=== PATIENT | male | born 1995 | race Two or more races ===

== ENCOUNTER 2019-10-07 18:56 | Emergency (ER) | payer SELFPAY ==
[~2019-10-07] VITALS: Ht 170.2 cm; Wt 56.7 kg
[~2019-10-07 18:56] MED LIST: LEVO750T31 PO
[2019-10-07] MEDS ORDERED: IV NORMAL SALINE 1000ML BAG 1,000 ML IV SCH (19:29)
[2019-10-07] MEDS ORDERED: ACETAMINOPHEN 500 MG TABLET PO ONE (19:30)
[2019-10-07] MEDS ORDERED: IBUPROFEN 200 MG TABLET. PO ONE (19:30)
[2019-10-07 19:54] LABS: BASO % 0 % (0-3); EOS % 0 % (0-3); HEMATOCRIT 44.6 % (39.0-53.0); HEMOGLOBIN 15.2 g/dL (13.0-17.5); LYMPH # 0.6 x10^3/uL (1.0-4.8); LYMPH % 6 % (24-48); MEAN CORPUSCULAR HEMOGLOBIN 29 pg (25-35); MEAN CORPUSCULAR HGB CONC 34 g/dL (31-37); MEAN CORPUSCULAR VOLUME 86 fL (79-100); MONO # 0.7 x10^3/uL (0.0-1.1); MONO % 7 % (0-9); NEUT # 8.5 x10^3/uL (1.8-7.7); NEUT % 87 % (31-73); PLATELET COUNT 149 x10^3/uL (140-400); RED CELL DISTRIBUTION WIDTH 12.7 % (11.5-14.5); WHITE BLOOD COUNT 9.8 x10^3/uL (4.0-11.0)
[2019-10-07 19:57] LABS: INFLUENZA A PATIENT NEGATIVE (NEGATIVE); INFLUENZA B PATIENT NEGATIVE (NEGATIVE)
[2019-10-07 20:06] LABS: CALCIUM 8.8 mg/dL (8.5-10.1); CREATININE 0.8 mg/dL (0.7-1.3); POTASSIUM 3.5 mmol/L (3.5-5.1)
[2019-10-07 20:11] LABS: ALBUMIN 4.2 g/dL (3.4-5.0); TOTAL BILIRUBIN 0.9 mg/dL (0.2-1.0); TOTAL PROTEIN 8.3 g/dL (6.4-8.2)
[2019-10-07 20:21] LABS: % BANDS 15 % (0-9); % LYMPHS 7 % (24-48); % MONOS 5 % (0-10); % SEGS 73 % (35-66); PLT ESTIMATE ADEQUATE (ADEQUATE)
--- NOTE | 2019-10-07 20:22 | PHYS DOC ---
Past Medical History Past Medical History: No Pertinent History Past Surgical History: No Surgical History Alcohol Use: Occasionally Drug Use: None Adult General Chief Complaint Chief Complaint: FLU SYMPTOM HPI HPI is a 23-year-old male who presents with complaint of fever, productive cough, body aches and chills for the last 4 days. Patient states symptoms of progressively gotten worse since onset. He rates the body aches as moderate. He states that his cough is been productive of green colored sputum. He denies any chest pain or shortness breath. He does admit to some nausea and has had some vomiting as well as. He states that he is getting sore in his ribs from all the coughing.[] Review of Systems Review of Systems Constitutional: Denies fever or chills [] Eyes: Denies change in visual acuity, redness, or eye pain [] HENT: Denies nasal congestion or sore throat [] Respiratory: Denies cough or shortness of breath [] Cardiovascular: No additional information not addressed in HPI [] GI: Denies abdominal pain, nausea, vomiting, bloody stools or diarrhea [] : Denies dysuria or hematuria [] Musculoskeletal: Denies back pain or joint pain [] Integument: Denies rash or skin lesions [] Neurologic: Denies headache, focal weakness or sensory changes [] Endocrine: Denies polyuria or polydipsia [] All other systems were reviewed and found to be within normal limits, except as documented in this note. Current Medications Current Medications Current Medications Medications (Trade) Dose Ordered Sig/Ephraim Start Time Stop Time Status Last Admin Dose Admin Acetaminophen (Tylenol) 1,000 mg 1X ONCE 10/07/19 19:30 10/07/19 19:33 DC 10/07/19 20:17 1,000 MG Ceftriaxone Sodium (Rocephin) 1 gm 1X ONCE 10/07/19 20:30 10/07/19 20:31 DC 10/07/19 20:39 1 GM Ibuprofen (Motrin) 600 mg 1X ONCE 10/07/19 19:30 10/07/19 19:33 DC 10/07/19 20:17 600 MG Sodium Chloride 1,000 ml @ 1,000 mls/hr Q1H 10/07/19 19:29 10/07/19 20:28 DC 10/07/19 20:18 1,000 MLS/HR Allergies Allergies Allergies Coded Allergies Type Severity Reaction Last Updated Verified No Known Drug Allergies 10/12/16 No Physical Exam Physical Exam Constitutional: Well developed, well nourished, no acute distress, non-toxic appearance. [] HENT: Normocephalic, atraumatic, bilateral external ears normal, oropharynx moist, no oral exudates, nose normal. [] Eyes: PERRLA, EOMI, conjunctiva normal, no discharge. [] Neck: Normal range of motion, no tenderness, supple. [] Cardiovascular: Tachycardic rate with regular rhythm[] Lungs & Thorax: Fine rhonchi are noted in the lung bases to auscultation [] Abdomen: Bowel sounds normal, soft, no tenderness. [] Skin: Warm, dry, no erythema, no rash. [] Extremities: No tenderness, no cyanosis, no clubbing, ROM intact, no edema. [] Neurologic: Alert and oriented X 3, no focal deficits noted. [] Current Patient Data Vital Signs Vital Signs Date Time Temp Pulse Resp B/P (MAP) Pulse Ox O2 Delivery O2 Flow Rate FiO2 10/07/19 19:22 103.1 144 20 144/87 (106) 95 Room Air 103.1 Lab Values Laboratory Tests Test 10/07/19 19:21 10/07/19 19:39 10/07/19 20:44 Influenza Type A Antigen Negative (NEGATIVE) Influenza Type B Antigen Negative (NEGATIVE) White Blood Count 9.8 x10^3/uL (4.0-11.0) Red Blood Count 5.20 x10^6/uL (4.30-5.70) Hemoglobin 15.2 g/dL (13.0-17.5) Hematocrit 44.6 % (39.0-53.0) Mean Corpuscular Volume 86 fL (79-100) Mean Corpuscular Hemoglobin 29 pg (25-35) Mean Corpuscular Hemoglobin Concent 34 g/dL (31-37) Red Cell Distribution Width 12.7 % (11.5-14.5) Platelet Count 149 x10^3/uL (140-400) Neutrophils (%) (Auto) 87 % (31-73) H Lymphocytes (%) (Auto) 6 % (24-48) L Monocytes (%) (Auto) 7 % (0-9) Eosinophils (%) (Auto) 0 % (0-3) Basophils (%) (Auto) 0 % (0-3) Neutrophils # (Auto) 8.5 x10^3/uL (1.8-7.7) H Lymphocytes # (Auto) 0.6 x10^3/uL (1.0-4.8) L Monocytes # (Auto) 0.7 x10^3/uL (0.0-1.1) Eosinophils # (Auto) 0.0 x10^3/uL (0.0-0.7) Basophils # (Auto) 0.0 x10^3/uL (0.0-0.2) Segmented Neutrophils % 73 % (35-66) H Band Neutrophils % 15 % (0-9) H Lymphocytes % 7 % (24-48) L Monocytes % 5 % (0-10) Platelet Estimate Adequate (ADEQUATE) Sodium Level 137 mmol/L (136-145) Potassium Level 3.5 mmol/L (3.5-5.1) Chloride Level 100 mmol/L (98-107) Carbon Dioxide Level 23 mmol/L (21-32) Anion Gap 14 (6-14) Blood Urea Nitrogen 18 mg/dL (8-26) Creatinine 0.8 mg/dL (0.7-1.3) Estimated GFR (Cockcroft-Gault) 122.0 BUN/Creatinine Ratio 23 (6-20) H Glucose Level 116 mg/dL (70-99) H Lactic Acid Level 1.1 mmol/L (0.4-2.0) Calcium Level 8.8 mg/dL (8.5-10.1) Total Bilirubin 0.9 mg/dL (0.2-1.0) Aspartate Amino Transferase (AST) 23 U/L (15-37) Alanine Aminotransferase (ALT) 26 U/L (16-63) Alkaline Phosphatase 104 U/L (46-116) Total Protein 8.3 g/dL (6.4-8.2) H Albumin 4.2 g/dL (3.4-5.0) Albumin/Globulin Ratio 1.0 (1.0-1.7) Urine Collection Type Unknown Urine Color [place] Urine Clarity Clear Urine pH 6.0 Urine Specific [place] >=1.030 Urine Protein 30 mg/dL (NEG-TRACE) Urine Glucose (UA) Negative mg/dL (NEG) Urine Ketones (Stick) >=80 mg/dL (NEG) Urine Blood Small (NEG) Urine Nitrite Negative (NEG) Urine Bilirubin Small (NEG) Urine Urobilinogen Dipstick 2.0 mg/dL (0.2 mg/dL) Urine Leukocyte Esterase Small (NEG) Urine RBC 6-10 /HPF (0-2) Urine WBC >40 /HPF (0-4) Urine Squamous Epithelial Cells Mod /LPF Urine Bacteria 0 /HPF (0-FEW) Urine Mucus Marked /LPF Laboratory Tests 10/07/19 19:39 Laboratory Tests 10/07/19 19:39 EKG EKG [] Radiology/Procedures Radiology/Procedures [] Impressions: Chest x-ray demonstrates focal consolidation left lower lobe, behind cardiac silhouette Course & Med Decision Making Course & Med Decision Making Pertinent Labs and Imaging studies reviewed. (See chart for details) [] Dragon Disclaimer Dragon Disclaimer This electronic medical record was generated, in whole or in part, using a voice recognition dictation system. Departure Departure Impression: Primary Impression: CAP (community acquired pneumonia) Disposition: HOME, SELF-CARE Condition: STABLE Referrals: NO PCP (PCP) Patient Instructions: Form - Excuse from Work, School, or Physical Activity, Pneumonia, Adult Scripts Guaifenesin/Codeine Phosphate (Codeine-Guaifen 10-100 mg/5 ml) 120 Ml Liquid 5-10 ML PO PRN Q6HRS PRN for cough and congestion MDD 20 Milliliter(s), #240 ML 0 Refills Prov: LEANNE VASQUEZ Jr. DO 10/07/19 Amoxicillin/Potassium Clav (AUGMENTIN 875-125 TABLET) 1 Each Tablet 1 TAB PO BID for 10 Days, #20 TAB 0 Refills Prov: LEANNE VASQUEZ Jr. DO 10/07/19 Problem Qualifiers Primary Impression: CAP (community acquired pneumonia) Laterality: left Lung location: lower lobe of lung Qualified Codes: J18.9 - Pneumonia, unspecified organism LEANNE VASQUEZ Jr. DO Oct 07, 2019 20:22
[2019-10-07] MEDS ORDERED: cefTRIAXone IV Push 1 GM VIAL. IVP ONE (20:30)
[2019-10-07 20:53] LABS: BILIRUBIN,URINE SMALL (NEG); CLARITY,URINE CLEAR; COLOR,URINE AMBER; NITRITE,URINE NEGATIVE (NEG); PROTEIN,URINE 30 mg/dL (NEG-TRACE)
[2019-10-07 21:06] LABS: SQUAMOUS EPITHELIAL CELL,UR MOD /LPF
[2019-10-07 21:07] LABS: BACTERIA,URINE 0 /HPF (0-FEW); WBC,URINE >40 /HPF (0-4)
[2019-10-07] MEDS ORDERED: GUAI120L35 PO (21:19)
[2019-10-07] MEDS ORDERED: AMOX1TAB61 PO (21:19)
[2019-10-07 21:38] VITALS: BP 114/59
--- NOTE | 2019-10-08 03:55 | RAD ---
PORTABLE CHEST 1V INDICATION: Fever, cough. COMPARISON STUDY: 10/13/2016. FINDINGS: Lungs: Normal lung volume. Retrocardiac opacities. The tracheobronchial tree and hilar structures are normal. Pleura: No pleural effusion or pneumothorax. Heart and Mediastinum: The cardiomediastinal silhouette is normal. The great vessels of the thorax are normal. IMPRESSION: Retrocardiac opacities, concerning for an infectious/inflammatory process. Electronically signed by: Lowell Bravo MD (10/08/2019 3:52 AM) [facility]
== END 2019-10-07 21:40 | disposition home or self-care (01) ==
LOC: ER 18:56
DX: J18.9 Pneumonia, unspecified organism (principal); R11.2 Nausea with vomiting, unspecified
CPT/HCPCS: 36415; 71045; 80053; 81001; 83605; 85007; 85025; 87040; 87086; 87804; 96361; 96374; 99285; J0696; J7030

== ENCOUNTER 2019-10-09 21:28 | Emergency (ER) | payer SELFPAY ==
[~2019-10-09] VITALS: Ht 167.6 cm; Wt 56.7 kg
[~2019-10-09 21:28] MED LIST changes: +AMOX1TAB61 PO; +GUAI120L35 PO
[2019-10-09 21:50] VITALS: BP 115/71
--- NOTE | 2019-10-09 22:45 | PHYS DOC ---
Past Medical History Past Medical History: No Pertinent History (ALISHA GHOSH APRN) Past Surgical History: No Surgical History (ALISHA GHOSH APRN) Alcohol Use: Occasionally Drug Use: None (ALISHA GHOSH APRN) Adult General Chief Complaint Chief Complaint: COUGH HPI HPI Patient is a 23 year old male who presents with diagnosed with pneumonia on October 07, 2019. Patient states that he was given 3 days off and he works for [employer]. He states that he needs more days off because he still does not feel very well and is still having a bad cough that will make him dizzy and pain with coughing and a bad headache with cough. 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 (ALISHA GHOSH APRN) Review of Systems Review of Systems Respiratory: cough or denies shortness of breath [] All other systems were reviewed and found to be within normal limits, except as documented in this note. (ALISHA GHOSH APRN) Allergies Allergies Allergies Coded Allergies Type Severity Reaction Last Updated Verified No Known Drug Allergies 10/12/16 No (KEAGAN KEMP DO) Physical Exam Physical Exam Constitutional: Well developed, well nourished, no acute distress, non-toxic appearance. [] HENT: Normocephalic, atraumatic, bilateral external ears normal, oropharynx moist, no oral exudates, nose normal. [] Eyes: PERRLA, EOMI, conjunctiva normal, no discharge. [] Neck: Normal range of motion, no tenderness, supple, no stridor. [] Cardiovascular:Heart rate regular rhythm, no murmur [] Lungs & Thorax: Bilateral breath sounds clear to auscultation [] Abdomen: Bowel sounds normal, soft, no tenderness, no masses, no pulsatile masses. [] Skin: Warm, dry, no erythema, no rash. [] Back: No tenderness, no CVA tenderness. [] Extremities: No tenderness, no cyanosis, no clubbing, ROM intact, no edema. [] Neurologic: Alert and oriented X 3, normal motor function, normal sensory function, no focal deficits noted. [] Psychologic: Affect normal, judgement normal, mood normal. Normal Physical Exam [] (ALISHA GHOSH APRN) Current Patient Data Vital Signs Vital Signs Date Time Temp Pulse Resp B/P (MAP) Pulse Ox O2 Delivery O2 Flow Rate FiO2 10/09/19 21:50 99.2 105 18 115/71 (86) 96 Room Air 99.2 (KEAGAN KEMP DO) EKG EKG [] (ALISHA GHOSH APRN) Radiology/Procedures Radiology/Procedures [] (ALISHA GHOSH APRN) Course & Med Decision Making Course & Med Decision Making Vital signs within normal limits. Ambulatory with steady gait. Skin pink warm and dry. Speaks in full clear sentences. Alert and oriented. His membranes moist. Patient denies nausea, vomiting, abdominal pain, shortness of breath, LOC, visual changes, weakness, numbness or tingling. Lungs are clear in all lobes. Patient is stable. Patient is told that he must establish care with a primary care provider. Patient states that he understands and will do so. Patient is MSE. (ALISHA GHOSH APRN) Dragon Disclaimer Dragon Disclaimer This electronic medical record was generated, in whole or in part, using a voice recognition dictation system. (ALISHA GHOSH APRN) Departure Departure Impression: Primary Impression: Encounter for medical screening examination Disposition: HOME, SELF-CARE Condition: STABLE Referrals: NO PCP (PCP) Attending Signature Attending Signature I have reviewed the PA/HAND BASEBALL SEWER's note and plan of care. I was available for consultat ion as needed during the patient's visit in the emergency department. I agree with the clinical impression, plan, and disposition. (KEAGAN KEMP DO) ALISHA GHOSH APRN Oct 09, 2019 22:45 KEAGAN KEMP DO Oct 10, 2019 01:19
== END 2019-10-09 22:30 | disposition home or self-care (01) ==
LOC: ER 21:28
DX: R05 Cough (principal); R51 Headache
CPT/HCPCS: 99281